=== PATIENT | female | born 1945 | race Caucasian/White ===

== ENCOUNTER 2018-06-18 01:18 | Observation (INO) | payer OTHER ==
[2018-06-18 01:59] LABS: ADD MAN DIFF? NO
[2018-06-18] MEDS ORDERED: NITROGLYCERIN (SL) 0.4 MG TAB SL ×2 (02:00→08:00)
[2018-06-18 02:07] LABS: BASOPHIL # 0.1 10^3/ul (0.0-0.1); BASOPHILS % 0.6 % (0.0-2.0); EOSINOPHILS # 1.3 10^3/ul (0.0-0.5); EOSINOPHILS % 14.2 % (0.0-7.0); HEMATOCRIT 32.6 % (37.0-47.0); LYMPHOCYTES # 1.9 10^3/ul (0.8-2.9); LYMPHOCYTES % 21.3 % (15.0-51.0); MEAN CORPUSCULAR HEMOGLOBIN 30.5 pg (29.0-33.0); MEAN CORPUSCULAR HGB CONC 33.7 g/dl (32.0-37.0); MEAN CORPUSCULAR VOLUME 90.3 fl (82.0-101.0); MEAN PLATELET VOLUME 10.1 fl (7.4-10.4); MONOCYTE # 0.7 10^3/ul (0.3-0.9); MONOCYTES % 8.2 % (0.0-11.0); NEUTROPHILS % 55.1 % (39.0-77.0); PLATELET COUNT 256 10^3/UL (140-415); RED BLOOD COUNT 3.61 10^6/ul (4.20-5.40); RED CELL DISTRIBUTION WIDTH 12.1 % (11.5-14.5)
[2018-06-18 02:22] LABS: ANION GAP 15 (5-13); BLOOD UREA NITROGEN 17 mg/dl (7-20); CALCIUM 9.8 mg/dl (8.4-10.2); CARBON DIOXIDE 28 mmol/L (21-31); CHLORIDE 99 mmol/L (97-110); CREATININE 1.09 mg/dl (0.44-1.00); GLUCOSE 136 mg/dl (70-220); POTASSIUM 4.5 mmol/L (3.5-5.1); SODIUM 142 mmol/L (135-144)
[2018-06-18] MEDS: NITROGLYCERIN 2% 1 GM OINT PKT TD (02:27)
[2018-06-18 02:34] LABS: TROPONIN-I < 0.012 ng/ml (0.000-0.120)
[2018-06-18] MEDS ORDERED: ACETAMINOPHEN 325 MG TAB PO ×2 (03:30→08:00)
[2018-06-18] MEDS ORDERED: ONDANSETRON 4 MG INJ IV (03:30)
[2018-06-18 06:45] LABS: CREATINE KINASE 253 IU/L (23-200)
[2018-06-18 06:56] LABS: CK INDEX 1.8; CK-MB 4.47 ng/ml (0.0-2.4); TROPONIN-I < 0.012 ng/ml (0.000-0.120)
[2018-06-18] MEDS: INSULIN ASPART [NOVOLOG] 3 ML PEN SC ×4 (07:55→20:44)
[2018-06-18] MEDS ORDERED: GLUCOSE GEL 15 GRAM TUBE PO ×2 (08:30)
[2018-06-18] MEDS ORDERED: DEXTROSE 50% 50 ML SYRINGE IV ×2 (08:30)
[2018-06-18] MEDS ORDERED: GLUCOSE GEL 15 GRAM TUBE BUCCAL (08:30)
[2018-06-18] MEDS ORDERED: GLUCAGON 1 MG INJ IM (08:30)
[2018-06-18 08:39] LABS: HEMOGLOBIN A1C 6.1 % (0-5.9)
[2018-06-18] MEDS: ASCORBIC ACID 500 MG TAB PO (08:39)
[2018-06-18] MEDS: ATORVASTATIN 20 MG TAB PO ×4 (08:39→20:37)
[2018-06-18] MEDS: CYANOCOBALAMIN 500 MCG TAB PO (08:39)
[2018-06-18] MEDS: LORATADINE 10 MG TAB PO ×2 (08:39→08:50)
[2018-06-18] MEDS: LISINOPRIL 20 MG TAB PO (08:40)
[2018-06-18 08:41] LABS: CHOL/HDL RATIO 3.7 RATIO; HDL CHOLESTEROL 44 mg/dl (33-92); LDL CHOLESTEROL,CALCULATED 88 mg/dl; TRIGLYCERIDES 157 mg/dl (0-149)
[2018-06-18 08:41] LABS: CHOLESTEROL 163 mg/dl (100-200)
[2018-06-18] MEDS: ENOXAPARIN 40 MG/0.4 ML SYG SC (08:42)
[2018-06-18] MEDS: ASPIRIN 325 MG TAB PO (08:43)
[2018-06-18] MEDS ORDERED: CALCIUM CARBONATE 1.25 GM TAB PO (09:00)
[2018-06-18 09:13] LABS: TROPONIN-I < 0.012 ng/ml (0.000-0.120)
[2018-06-18] MEDS: METHYLPREDNISOLONE 40 MG INJ IV ×2 (12:46→20:38)
[2018-06-18] MEDS: CEFTRIAXONE 1 GM/50 ML (PMX) 50 ML IVPB (12:49)
[2018-06-18] MEDS: ALBUTEROL/IPRATROPIUM (NEB) 3 ML AMP HHN ×2 (14:15→20:09)
[2018-06-18 15:53] LABS: CREATINE KINASE 198 IU/L (23-200)
[2018-06-18 16:04] LABS: CK INDEX 1.8; CK-MB 3.56 ng/ml (0.0-2.4); TROPONIN-I < 0.012 ng/ml (0.000-0.120)
[2018-06-18] MEDS: METOPROLOL 25 MG TAB PO (20:38)
[2018-06-18 21:01] LABS: TROPONIN-I < 0.012 ng/ml (0.000-0.120)
[2018-06-19 06:23] LABS: ADD MAN DIFF? NO
[2018-06-19 06:31] LABS: BASOPHILS % 0.3 % (0.0-2.0); EOSINOPHILS % 0.1 % (0.0-7.0); HEMATOCRIT 30.8 % (37.0-47.0); HEMOGLOBIN 10.2 g/dl (12.0-16.0); LYMPHOCYTES # 1.5 10^3/ul (0.8-2.9); LYMPHOCYTES % 13.7 % (15.0-51.0); MEAN CORPUSCULAR HEMOGLOBIN 29.7 pg (29.0-33.0); MEAN CORPUSCULAR HGB CONC 33.1 g/dl (32.0-37.0); MEAN CORPUSCULAR VOLUME 89.8 fl (82.0-101.0); MEAN PLATELET VOLUME 10.5 fl (7.4-10.4); MONOCYTE # 0.3 10^3/ul (0.3-0.9); MONOCYTES % 2.4 % (0.0-11.0); NEUTROPHIL # 8.7 10^3/ul (1.6-7.5); NEUTROPHILS % 82.6 % (39.0-77.0); PLATELET COUNT 250 10^3/UL (140-415); RED BLOOD COUNT 3.43 10^6/ul (4.20-5.40)
[2018-06-19 06:31] LABS: WHITE BLOOD COUNT 10.6 10^3/ul (4.8-10.8)
[2018-06-19 06:47] LABS: ANION GAP 11 (5-13); BLOOD UREA NITROGEN 25 mg/dl (7-20); CALCIUM 9.6 mg/dl (8.4-10.2); CARBON DIOXIDE 27 mmol/L (21-31); CHLORIDE 104 mmol/L (97-110); CREATININE 0.89 mg/dl (0.44-1.00); GLUCOSE 147 mg/dl (70-220); SODIUM 142 mmol/L (135-144)
[2018-06-19 07:05] LABS: CHOLESTEROL 171 mg/dl (100-200)
[2018-06-19 07:05] LABS: CHOL/HDL RATIO 4.7 RATIO; HDL CHOLESTEROL 36 mg/dl (33-92); LDL CHOLESTEROL,CALCULATED 116 mg/dl; TRIGLYCERIDES 93 mg/dl (0-149)
[2018-06-19] MEDS: INSULIN ASPART [NOVOLOG] 3 ML PEN SC ×5 (07:34→21:00)
[2018-06-19] MEDS: METOPROLOL 25 MG TAB PO ×2 (08:17→21:48)
[2018-06-19] MEDS: METHYLPREDNISOLONE 40 MG INJ IV ×2 (08:18→21:52)
[2018-06-19] MEDS: ENOXAPARIN 40 MG/0.4 ML SYG SC (08:21)
[2018-06-19] MEDS: ALBUTEROL/IPRATROPIUM (NEB) 3 ML AMP HHN ×3 (08:32→20:39)
[2018-06-19] MEDS: REGADENOSON 0.4 MG/5 ML SYG (12:05)
[2018-06-19] MEDS: CEFTRIAXONE 1 GM/50 ML (PMX) 50 ML IVPB (12:46)
[2018-06-19] MEDS: ASPIRIN 325 MG TAB PO (12:47)
[2018-06-19] MEDS: LORATADINE 10 MG TAB PO (12:47)
[2018-06-19] MEDS: ASCORBIC ACID 500 MG TAB PO (12:47)
[2018-06-19] MEDS: CYANOCOBALAMIN 500 MCG TAB PO (12:47)
[2018-06-19] MEDS: LISINOPRIL 20 MG TAB PO (12:51)
[2018-06-19] MEDS: ATORVASTATIN 20 MG TAB PO (21:48)
[2018-06-20 06:49] LABS: ADD MAN DIFF? NO
[2018-06-20 06:57] LABS: BASOPHILS % 0.1 % (0.0-2.0); HEMOGLOBIN 10.6 g/dl (12.0-16.0); LYMPHOCYTES # 1.8 10^3/ul (0.8-2.9); LYMPHOCYTES % 12.2 % (15.0-51.0); MEAN CORPUSCULAR HEMOGLOBIN 29.7 pg (29.0-33.0); MEAN CORPUSCULAR HGB CONC 33.1 g/dl (32.0-37.0); MEAN CORPUSCULAR VOLUME 89.6 fl (82.0-101.0); MEAN PLATELET VOLUME 10.5 fl (7.4-10.4); MONOCYTE # 0.5 10^3/ul (0.3-0.9); MONOCYTES % 3.4 % (0.0-11.0); NEUTROPHIL # 12.4 10^3/ul (1.6-7.5); NEUTROPHILS % 83.2 % (39.0-77.0); PLATELET COUNT 275 10^3/UL (140-415); RED BLOOD COUNT 3.57 10^6/ul (4.20-5.40); RED CELL DISTRIBUTION WIDTH 12.6 % (11.5-14.5)
[2018-06-20 07:19] LABS: ANION GAP 8 (5-13); BLOOD UREA NITROGEN 35 mg/dl (7-20); CALCIUM 9.5 mg/dl (8.4-10.2); CARBON DIOXIDE 27 mmol/L (21-31); CHLORIDE 105 mmol/L (97-110); CREATININE 1.02 mg/dl (0.44-1.00); GLUCOSE 165 mg/dl (70-220); POTASSIUM 4.9 mmol/L (3.5-5.1); SODIUM 140 mmol/L (135-144)
[2018-06-20] MEDS: ALBUTEROL/IPRATROPIUM (NEB) 3 ML AMP HHN ×2 (07:42→14:33)
[2018-06-20] MEDS: INSULIN ASPART [NOVOLOG] 3 ML PEN SC ×3 (07:55→17:55)
[2018-06-20] MEDS: ASPIRIN 325 MG TAB PO (08:16)
[2018-06-20] MEDS: ASCORBIC ACID 500 MG TAB PO (08:16)
[2018-06-20] MEDS: METOPROLOL 25 MG TAB PO (08:17)
[2018-06-20] MEDS: LORATADINE 10 MG TAB PO (08:17)
[2018-06-20] MEDS: LISINOPRIL 20 MG TAB PO (08:17)
[2018-06-20] MEDS: CYANOCOBALAMIN 500 MCG TAB PO (08:17)
[2018-06-20] MEDS: METHYLPREDNISOLONE 40 MG INJ IV (08:17)
[2018-06-20] MEDS: ENOXAPARIN 40 MG/0.4 ML SYG SC (08:18)
[2018-06-20] MEDS: CEFTRIAXONE 1 GM/50 ML (PMX) 50 ML IVPB (13:14)
== END 2018-06-20 18:50 | disposition home or self-care (01) ==
LOC: E/R 01:18 → TEL 03:22
DX: R07.9 Chest pain, unspecified (principal); J20.9 Acute bronchitis, unspecified; E11.9 Type 2 diabetes mellitus without complications; I10 Essential (primary) hypertension; Z79.84 Long term (current) use of oral hypoglycemic drugs; J45.909 Unspecified asthma, uncomplicated; R94.31 Abnormal electrocardiogram [ECG] [EKG]
CPT/HCPCS: 36415; 71045; 78452; 80048; 80061; 82550; 82553; 82962; 83036; 84484; 85025; 93005; 93017; 93306; 94640; 94664; 99285-25; G0378